=== PATIENT | female | born 1960 | race Caucasian/White ===

== ENCOUNTER 2019-01-13 02:44 | Outpatient (CLI) | payer BC | END 2019-01-13 23:59 | disposition home or self-care (01) | LOC: DIABETIC 02:44 | PROVIDERS: ATTEND Specialist | DX: E11.69 Type 2 diabetes mellitus with other specified complication (principal) | CPT/HCPCS: G0108 ==

== ENCOUNTER → 2019-02-12 | Outpatient (CLI) | payer BC | END | disposition home or self-care (01) | LOC: DIABETIC 03:18 | PROVIDERS: ATTEND Specialist | DX: E11.65 Type 2 diabetes mellitus with hyperglycemia (principal); Z79.84 Long term (current) use of oral hypoglycemic drugs; Z79.82 Long term (current) use of aspirin; Z79.899 Other long term (current) drug therapy; Z88.1 Allergy status to other antibiotic agents; Z88.2 Allergy status to sulfonamides; Z91.040 Latex allergy status; Z88.8 Allergy status to other drugs, medicaments and biological substances | CPT/HCPCS: G0108 ==